=== PATIENT | male | born 1945 | race Caucasian/White ===

== ENCOUNTER → 2019-06-23 | Outpatient (CLI) | payer OTHER ==
[2019-06-23 12:12] LABS: URINE BILIRUBIN NEGATIVE (Negative); URINE BLOOD NEGATIVE (Negative); URINE CLARITY CLEAR; URINE COLOR YELLOW; URINE GLUCOSE-RANDOM* TRACE (Negative); URINE KETONES NEGATIVE (Negative); URINE LEUKOCYTES NEGATIVE (Negative); URINE NITRITE NEGATIVE (Negative); URINE PROTEIN (DIPSTICK) NEGATIVE (Negative); URINE SPECIFIC GRAVITY 1.015 (1.005-1.035); URINE UROBILINOGEN 0.2 E.U./dl (0.2-1.0)
[2019-06-23 12:24] LABS: ALBUMIN 3.9 g/dL (3.4-5.0); CALCIUM 9.7 mg/dL (8.5-10.1); CREATININE 1.2 mg/dL (0.7-1.3); POTASSIUM 4.1 mmol/L (3.5-5.1); TOTAL BILIRUBIN 0.6 mg/dL (<0.1-1.0); TOTAL PROTEIN 6.7 g/dL (6.4-8.2)
--- NOTE | 2019-06-23 13:57 | 2DMMODE ---
[facility] [place] [address] 2 D/M-MODE ECHOCARDIOGRAM Name: ADARSH VENTURA Room #: REG CL [facility].#: [id number] Admission: 06/23/19 Attend Phys: Darío Marcelino MD Discharge: Date of : 41 Report #: [id number] THIS REPORT FOR: //name// APPROVED REPORT Study performed: 06/23/2019 13:03:44 EXAM: Comprehensive 2D, Doppler, and color-flow Echocardiogram Patient Location: Out-Patient Status: routine BSA: 2.35 HR: 74 bpm BP: 128/74 mmHg Rhythm: NSR Other Information Study Quality: Adequate Technically limited study due to body habitus. RN attempted to start IV with no success. Indications CAD. Hx: CABG, HTN, HLP, DM. 2D Dimensions RVDd: 42.76 mm IVSd: 8.41 (7-11mm) LVOT Diam: 23.93 (18-24mm) LVDd: 63.99 mm PWd: 9.42 (7-11mm) Ascending Ao: 36.50 (22-36mm) LVDs: 57.33 (25-40mm) Aortic Root: 36.32 mm Volumes Left Atrial Volume (Systole) Single Plane 4CH: 71.86 mL Single Plane 2CH: 99.08 mL LA ESV Index: 40.00 mL/m2 Aortic Valve AoV Peak Cb.: 1.38 m/s AO Peak Gr.: 7.60 mmHg LVOT Max P.65 mmHg LVOT Max V: 1.19 m/s LORENE Vmax: 3.87 cm2 Mitral Valve E/A Ratio: 1.1 [facility] [address] [place] [address] 2 D/M-MODE ECHOCARDIOGRAM Name: ADARSH VENTURA Room #: REG CL [facility]#: [id number] Admission: 06/23/19 Attend Phys: Darío Marcelino MD Discharge: Date of : 41 Report #: [id number] MV Decel. Time: 220.26 ms MV E Max Cb.: 1.00 m/s MV A Cb.: 0.89 m/s MV PHT: 63.88 ms IVRT: 69.20 ms Pulmonary Valve PV Peak Cb.: 0.84 m/s PV Peak Gr.: 2.85 mmHg Pulmonary Vein P Vein S: 0.42 m/s P Vein A: 0.20 m/s P Vein D: 0.53 m/s P Vein S/D Ratio: 0.79 Tricuspid Valve TR Peak Cb.: 2.70 m/s RAP Estimate: 5.00 mmHg TR Peak Gr.: 29.00 mmHg PA Pressure: 34.00 mmHg Left Ventricle Left ventricle is moderately dilated. Regional wall motion abnormalities are noted. There is normal left ventricular wall thickness. Left ventricular systolic function is moderately decreased. LVEF is 35-40%. Moderate diastolic dysfunction is present (pseudonormal filling). Right Ventricle Right ventricle is at the upper limits of normal. The right ventricular systolic function is normal. Atria Left atrium is moderately dilated. Right atrium is mildly dilated. Aortic Valve The aortic valve is normal in structure. Trace aortic regurgitation. There is no aortic valvular stenosis. Mitral Valve The mitral valve is normal in structure. Moderate mitral regurgitation. Tricuspid Valve The tricuspid valve is normal in structure. Mild tricuspid regurgitation. Estimated PAP is 35mmHg. [facility] [place] [address] 2 D/M-MODE ECHOCARDIOGRAM Name: ADARSH VENTURA Room #: REG CL [facility]#: [id number] Admission: 06/23/19 Attend Phys: Darío Marcelino MD Discharge: Date of : 41 Report #: [id number] Pulmonic Valve The pulmonary valve is normal in structure. Mild pulmonic regurgitation. Great Vessels The aortic root is normal in size. The ascending aorta is normal in size. IVC is normal in size and collapses >50% with inspiration. Pericardium There is no pericardial effusion. <Conclusion> Left ventricle is moderately dilated. LVEF is 35-40%. Left atrium is moderately dilated. Right atrium is mildly dilated. The aortic valve is normal in structure. Trace aortic regurgitation. The mitral valve is normal in structure. Moderate mitral regurgitation. The tricuspid valve is normal in structure. Mild tricuspid regurgitation. Estimated PAP is 35mmHg. The pulmonary valve is normal in structure. Mild pulmonic regurgitation. There is no pericardial effusion. <ELECTRONICALLY SIGNED> By: Lang Rudolph MD 06/23/19 [id number] Lang Rudolph MD /INF
== END ==
LOC: CV 11:35
PROVIDERS: Orthopaedic Surgery
DX: I08.8 Other rheumatic multiple valve diseases (principal); I25.10 Atherosclerotic heart disease of native coronary artery without angina pectoris; E11.9 Type 2 diabetes mellitus without complications; I10 Essential (primary) hypertension; E78.5 Hyperlipidemia, unspecified